=== PATIENT | female | born 1930 | race Caucasian/White ===

== ENCOUNTER 2017-02-17 16:20 | Emergency (ER) | payer MEDICARE ==
[~2017-02-17] VITALS: Ht 160 cm; Wt 61.9 kg
[2017-02-17 17:01] LABS: HEMATOCRIT 49.1 % (34.6-47.8); HEMOGLOBIN 16.4 g/dL (11.7-16.4); WHITE BLOOD COUNT 5.5 x10^3/uL (3.4-10)
[2017-02-17] MEDS ORDERED: LEVO25TA4 PO (17:23)
[2017-02-17] MEDS ORDERED: POTA99TA3 PO (17:23)
[2017-02-17] MEDS ORDERED: ASPI1TAB54 PO (17:23)
[2017-02-17] MEDS ORDERED: ROSU5TAB PO (17:23)
[2017-02-17] MEDS ORDERED: RALO60TA PO (17:23)
[2017-02-17] MEDS ORDERED: METO25TA35 PO (17:23)
[2017-02-17] MEDS ORDERED: CALC1TAB84 PO (17:23)
[2017-02-17] MEDS ORDERED: BENA40TA2 PO (17:23)
[2017-02-17] MEDS ORDERED: OMEP10CA4 PO (17:23)
[2017-02-17 18:16] LABS: BLOOD UREA NITROGEN 11 mg/dL (7-18)
[2017-02-17 18:24] LABS: IS PT STATUS REG ER OR PRE ER? YES
[2017-02-17 18:58] VITALS: BP 137/61
== END 2017-02-17 19:00 | disposition home or self-care (01) ==
LOC: ED 17:23
DX: R07.89 Other chest pain (principal); J44.9 Chronic obstructive pulmonary disease, unspecified; I10 Essential (primary) hypertension; I25.10 Atherosclerotic heart disease of native coronary artery without angina pectoris; I25.2 Old myocardial infarction; E03.9 Hypothyroidism, unspecified; Z87.891 Personal history of nicotine dependence; Z95.5 Presence of coronary angioplasty implant and graft
CPT/HCPCS: 36415; 71010; 80048; 82040; 83880; 84484; 85025; 93005; 99285